=== PATIENT | male | born 1965 | race Hispanic/Latino ===

== ENCOUNTER → 2019-09-13 17:09 | Outpatient (CLI) | payer OTHER, SELFPAY ==
--- NOTE | ~2019-09-13 | XR_ITS ---
XR chest 2V DATE: 09/13/2019 17:42 INDICATION: Cough TECHNIQUE: 2 views COMPARISON: 07/25/2016 two-view chest FINDINGS: Normal heart size. No hilar or mediastinal enlargement. No pulmonary infiltrate or consolid ation, pleural effusion or pulmonary vascular congestion or pneumothorax. Surgical clips, right upper quadrant, likely due to cholecystectomy. IMPRESSION: No active cardiopulmonary disease Reviewed, dictated and finalized at location B.
== END ==
PROVIDERS: PCP Family Medicine; Visit Provider Nurse Practitioner Family
DX: R05 Cough (principal)
CPT/HCPCS: 71046

== ENCOUNTER 2019-10-25 10:22 | Outpatient (NON) | payer OTHER, SELFPAY ==
[2019-10-26 14:10] LABS: SARS-CoV-2 RNA PCR Negative
== END 2019-10-25 10:23 ==
PROVIDERS: PCP Family Medicine; Visit Provider Family Medicine
DX: R04.2 Hemoptysis (principal); R06.89 Other abnormalities of breathing; R50.9 Fever, unspecified; R53.83 Other fatigue; Z20.828 Contact with and (suspected) exposure to other viral communicable diseases
CPT/HCPCS: 87635; U0003

== ENCOUNTER 2019-10-25 10:54 | Outpatient (CLI) | payer OTHER, SELFPAY ==
--- NOTE | ~2019-10-25 | XR_ITS ---
XR chest 2V DATE: 10/25/2019 11:10 INDICATION: Cough, shortness of breath TECHNIQUE: PA and lateral views COMPARISON: 09/23/2019 2 view chest FINDINGS: There is new patchy consolidation with air bronchograms in the right lower lung zone since 09/13/2019. The lungs otherwise appear clear of infiltrate or consolidation. There is mild right pleural effusion. No pneumothorax. Normal heart size. No hilar or mediastinal enlargement is evident. Surgical clips, right upper quadrant, consistent with cholecystectomy. IMPRESSION: Patchy consolidating infiltrate right lower lung, with mild right pleural effusion Reviewed, dictated and finalized at location A. IMPRESSION: Patchy consolidating infiltrate right lower lung, with mild right p leural effusion
== END 2019-10-25 10:55 | disposition home or self-care (01) ==
PROVIDERS: PCP Family Medicine; Visit Provider Family Medicine
DX: R05 Cough (principal); J90 Pleural effusion, not elsewhere classified; R91.8 Other nonspecific abnormal finding of lung field
CPT/HCPCS: 71046

== ENCOUNTER 2019-10-26 20:28 | Inpatient (IN) | payer OTHER, SELFPAY ==
--- NOTE | ~2019-10-26 | XR_ITS ---
EXAMINATION: XR chest 2V DATE: 10/26/2019 21:12 INDICATION: Chest pain and cough TECHNIQUE: PA and lateral views of the chest are obtained. COMPARISON: 10/25/2019 FINDINGS: Right basilar airspace opacities have increased. There are developing left basilar airspace opacities. The cardiomediastinal silhouette is stable. There is no pleural effusion or pneumothorax. Cholecystectomy clips are noted in the right upper quadrant. IMPRESSION: 1. Bibasilar airspace opacities, worsening on the right and developing on the left, consistent with p neumonia versus atelectasis. Reviewed, dictated and finalized at location A. IMPRESSION: 1. Bibasilar airspace opacities, worsening on the right and developing on the l eft, consistent with pneumonia versus atelectasis.
--- NOTE | ~2019-10-26 | XR_ITS ---
EXAMINATION: XR chest 2V DATE: 10/29/2019 07:21 INDICATION: Follow-up pneumonia TECHNIQUE: PA and lateral views of the chest were obtained. COMPARISON: Chest radiograph dated 10/26/2019 FINDINGS: Decrease in the prior airspace opacities in the right lower lobe. Residual small right pleural effusi on. Left lung remains clear. No pneumothorax or left-sided pleural effusion. The cardiomediastinal si lhouette is normal. Cholecystectomy clips in right upper quadrant. Mild thoracolumbar spondylosis. IMPRESSION: 1. Decreasing left lower lobe opacities consistent with improving pneumonia. 2. Small left pleural effusion. Reviewed, dictated and finalized at location A.
[2019-10-26 20:30] VITALS: BP 146/88; PULSE 107; RESP 26; TEMP 37.1; O2SAT 97
--- NOTE | 2019-10-26 20:34 | ECG_ITS ---
Measurements Intervals [place] Rate: 100 P: -3 NC: 132 QRS: -18 QRSD: 102 T: -5 QT: 338 QTc: 436 Interpretive Statements SINUS TACHYCARDIA RSR' IN V1 OR V2, CONSIDER RIGHT VENTRICULAR HYPERTROPHY OR RIGHT VCD VOLTAGE CRITERIA FOR LVH BORDERLINE T WAVE ABNORMALITY- INFERIOR LEADS BORDERLINE ECG Electronically Signed On 10-27-2019 7:02:03 CDT by Mukesh Elder D.O.
[2019-10-26 20:47] VITALS: O2SAT 100
[2019-10-26 20:56] LABS: Basophils Absolute Auto 0.1 K/mm3 (0.0-0.1); Basophils Percent Auto 0.6 % (0.2-1.2); Eosinophils Absolute Auto 0.2 K/mm3 (0-0.3); Eosinophils Percent Auto 1.4 % (0-4.4); Hematocrit 44.6 % (42.0-52.0); Hemoglobin 14.8 g/dL (14.0-18.0); Immature Granulocyte Absolute 0.16 K/mm3 (0.00-0.031); Immature Granulocyte Percent A 1.2 % (0-0.5); Lymphocytes Absolute Auto 1.52 K/mm3 (0.9-3.2); Lymphocytes Percent Auto 11.5 % (18.3-44.2); Mean Corpuscular HGB Conc 33.2 g/dl (32-36); Mean Corpuscular Hemoglobin 28.4 pg (26-34); Mean Corpuscular Volume 85.6 fl (80-100); Mean Platelet Volume 11.2 fl (7.4-10.4); Monocytes Absolute Auto 0.6 K/mm3 (0.1-0.6); Monocytes Percent Auto 4.6 % (2.6-8.5); Neutrophils Absolute Auto 10.7 K/mm3 (1.3-6.7); Neutrophils Percent Auto 80.7 % (45.5-73.1); Platelet Count Result 144 k/mm3 (150-375); Red Blood Count 5.21 M/mm3 (4.6-6.20); Red Cell Distribution Width 13.7 % (11.5-14.5); White Blood Count 13.2 K/mm3 (4.5-10.0)
[2019-10-26 21:14] LABS: Blood Urea Nitrogen 18 mg/dL (9-20); Calcium 8.9 mg/dL (8.4-10.2); Carbon Dioxide 19 mmol/L (22-30); Chloride 103 mmol/L (98-107); Estimated CRCL calculation 89 ml/min; Estimated Glomerular Filt Rate > 60; Glucose 141 mg/dL (75-110); Sodium 130 mmol/L (137-145)
[2019-10-26 22:01] VITALS: BP 154/104; PULSE 102; RESP 32; O2SAT 95
--- NOTE | 2019-10-26 22:19 | ED.GENADULT ---
HPI - General Adult General Chief complaint: Shortness of Breath/Dyspnea Stated complaint: PNA DX YESTERDAY/BACK AND CHEST PAIN Time Seen by Provider: 10/26/19 21:52 History of Present Illness HPI narrative: Patient is a 54 y/o male complaining of intermittent right sided chest pain starting today. He state the pain is sharp and radiates to his back. He rates his pain as 10/10. He has some cough, SOB and fever. He states that he has been having cough for over a month, received multiple course of antibiotics. He developed fever upto 102 3 days ago. He has no fever today, however. He was seen here yesterday, diagnosed with pneumonia and prescribed Levaquin. He return today because of right sided chest pain. Related Data Home Medications Medication Instructions Recorded Confirmed cetirizine mg DAILY 10/26/19 cholecalciferol (vitamin D3) DAILY 10/26/19 [Vitamin D3] diphenhydramine HCl [Benadryl] 25 mg PO HS 10/26/19 levofloxacin 10/26/19 pantoprazole PO DAILY 10/26/19 Allergies Allergy/AdvReac Type Severity Reaction Status Date / Time No Known Allergies Allergy Verified 10/26/19 21:13 Review of Systems Constitutional: Constitutional: Denies chills, Denies fever(s), Denies headache(s) and Denies weakness Eyes: Eyes: Denies blurry vision ENT: Denies headache(s) and Denies neck pain Cardiovascular: Cardiovascular: Reports chest pain and Denies dyspnea Respiratory: Respiratory: Reports cough and Reports dyspnea Gastrointestinal: Gastrointestinal: Denies abdominal pain, Denies diarrhea, Denies nausea and Denies vomiting Genitourinary: Genitourinary: Denies hematuria and Denies dysuria Musculoskeletal: Musculoskeletal: Denies back pain and Denies neck pain Neurologic: Denies headache(s) and Denies weakness ON LICENSE OF [facility] Social History Social History Smoking status: Never smoker Second hand tobacco smoke exposure: No Alcohol intake: never Gender identity (if verbalized by the patient): Male Exam Const: General: no acute distress and well developed Orientation/consciousness: oriented to person, oriented to place, oriented to time and patient oriented x3 HENMT: Head: normocephalic Ears: external ears normal General nose exam: Normal external nose present Eyes: General: appearance normal, both eyes and all related structures Conjunctivae: conjunctivae normal Neck: Neck: normal visual inspection and full ROM Chest: Chest palpation & inspection: normal inspection of the chest and no tenderness Resp: Effort & Inspection: tachypneic Auscultation: clear to auscultation bilaterally Cardio: Rate: tachycardic Rhythm: regular rhythm GI: GI Palp: No abdominal tenderness and Yes Soft to palpation Skin: General skin exam: normal color and turgor normal Neuro: General: oriented to person, oriented to place, oriented to time and patient oriented x3 Cognition (Neuro): normal cognition Extrem: General: normal to inspection, full ROM and no pedal edema Psych: Appearance: grossly normal Mental Status: mental status grossly normal Affect: normal affect Course Consultations Consultation #1: Discussed with Dr. Wiggins, who agrees to admit. Date: 10/26/19 Time: 22:30 Vital Signs Vital signs: Vital Signs Temperature 37.1 C 10/26/19 20:30 Pulse Rate 107 H 10/26/19 20:30 Respiratory Rate 26 H 10/26/19 20:30 Blood Pressure 146/88 H 10/26/19 20:30 Pulse Oximetry 97 10/26/19 20:30 Temperature 37.1 C 10/26/19 20:30 Pulse Rate 102 H 10/26/19 22:01 Respiratory Rate 32 H 10/26/19 22:01 Blood Pressure 154/104 H 10/26/19 22:01 Pulse Oximetry 95 10/26/19 22:01 Medical Decision Making Vital Signs Vital Signs: Vital Signs Temperature 37.1 C 10/26/19 20:30 Pulse Rate 107 H 10/26/19 20:30 Respiratory Rate 26 H 10/26/19 20:30 Blood Pressure 146/88 H 10/26/19 20:30 Pulse Oximetry 97 10/26/19 20:30 Temperature
[2019-10-26 23:03] LABS: Lactate Dehydrogenase 307 U/L (313-618)
[2019-10-26 23:04] LABS: Troponin I < 0.012 ng/mL (0.000-0.034)
[2019-10-26 23:08] LABS: CRP 18.2 mg/dL (<1.0)
[2019-10-26 23:34] VITALS: BMI 33.7
[2019-10-26 23:35] VITALS: PULSE 92; O2SAT 98
[2019-10-26 23:40] VITALS: BP 151/88; PULSE 94; RESP 18; TEMP 36.9; O2SAT 96
--- NOTE | 2019-10-26 23:40 | ADMGEN ---
This patient, Fermín White, was admitted to [facility] Surg Room 330-01. Patient/family oriented to hospital policies and general routines including ID bracelet, bed and alarms, visiting hours, pain management, procedures, bathroom and other care routines, personal items, smoking policy, room service/diet, and visiting hours. Valuables list has been completed. Information on how to activate the Rapid Response Team has been discussed. Patient/Family are encouraged to report perceived risks to care and to ask questions if they do not understand what they are told or what they should do.
[2019-10-26 23:44] VITALS: BP 152/100; PULSE 104; RESP 32; O2SAT 97
[2019-10-27] VITALS (13 sets, daily range): BP systolic 141–175; BP diastolic 80–96; PULSE 80–115; RESP 18–24; TEMP 36.7–37.3; O2SAT 94–97; BMI 19.5
[2019-10-27 02:26] LABS: Troponin I < 0.012 ng/mL (0.000-0.034)
[2019-10-27] MEDS: hydrALAZINE HCL 20 MG/ML VIAL 10 MG IV PUSH ×2 (03:52→10:13)
--- NOTE | 2019-10-27 05:24 | PM.IMHP ---
H&P: HPI History of Present Illness Chief complaint: Shortness of breath and chest pain Narrative: Fermín White is a 54 year old male with a past medical history of GERD, and seasonal allergies who presented to the ER with shortness of breath and chest pain after being diagnosed with pneumonia the day before. The patient reports that he had been having intermittent upper respiratory tract symptoms for the last 3 months. He reports that in still couple of days ago his cough had been dry/nonproductive. He went to see his primary care physician on the 12 of September and had a chest x-ray performed and was started on cefdinir, and albuterol inhaler and Tessalon Perles. His chest x-ray at that time was unremarkable. He went back to his primary care physician on 10/15/2019 time that his cough was more reactive he was given a prescription for prednisone. After course of prednisone the patient reports that his cough had resolved any felt much better. Until Friday the he began having increased cough, chills, fever and shortness of breath. His cough also over the last couple of days has been productive of green sputum and scant hemoptysis. He reports that his last fever was 100.2 3 days ago. He has been taking NSAIDs to keep his temperature down. He was seen in the clinic on the and was given a prescription for Levaquin. He had a chest x-ray performed at that time which demonstrated patchy consolidation at the inferior right lower lobe and mild pleural effusion. He was tested for COVID-19 and was negative. He decided to come back to the ER because on the he started having right pleuritic chest pain. The pain was moderate to severe in intensity. His pain is improved now with [place]. The pain radiated around to his back. When he arrived to the ER he was mildly tachycardic with heart rate in the low 100s. Respiratory rate was between 26 and 32. He has not been hypoxic since presentation. He denies any recent ill contacts. 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 He denies any history of COPD. However he did have pulmonary function testing a couple of years ago that was negative for COPD with did demonstrate some decreased diffusion capacity (were that simply sweat it sounds like per the patient's report). Had a CT in 2009 that was suggestive of chronic bronchiolitis or hypersensitivity pneumonitis. Review of Systems Review of Systems: Narrative: 12 systems were reviewed with pertinent positives and negatives per HPI. Except as documented in the HPI, all other systems were reviewed and are negative. [facility] Past Medical History Medical History (Updated 10/27/19 @ 08:00 by Glenys Wiggins DO) Allergic rhinitis GERD (gastroesophageal reflux disease) Hepatic steatosis Kidney stones Migraine Obstructive sleep apnea on CPAP Surgical History Surgical History (Updated 10/27/19 @ 03:15 by Glenys Wiggins DO) History of appendectomy History of laparoscopic cholecystectomy Family History Family History (Updated 10/27/19 @ 07:43 by Glenys Wiggins DO) Father , At age 50 Acute myocardial infarction Mother In good health Social History Social History (Updated 10/27/19 @ 07:45 by Glenys Wiggins DO) Social History: Primary care physician: Dr. Rock [place] Smoking status: Never smoker Second hand tobacco smoke exposure: No Alcohol intake: never Substance use: never Living arrangements: with family Additional living arrangements comments: The patient lives with his of 39 years and her youngest daughter who is 20 years old. He has 4 daughters in total. He has 5 grandchildren. 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 Gender identity (if verbalized by the patient): Male Spiritual care concerns: No Agree to blood products: Yes Meds Home Medications and Allergies Home Medications
[2019-10-27 06:13] LABS: Basophils Absolute Auto 0.1 K/mm3 (0.0-0.1); Basophils Percent Auto 0.5 % (0.2-1.2); Eosinophils Absolute Auto 0.2 K/mm3 (0-0.3); Eosinophils Percent Auto 1.9 % (0-4.4); Hematocrit 42.7 % (42.0-52.0); Hemoglobin 14.3 g/dL (14.0-18.0); Immature Granulocyte Absolute 0.14 K/mm3 (0.00-0.031); Immature Granulocyte Percent A 1.1 % (0-0.5); Immature Platelet Fraction Pct 7.2 % (0.9-11.2); Lymphocytes Absolute Auto 1.91 K/mm3 (0.9-3.2); Lymphocytes Percent Auto 15.3 % (18.3-44.2); Mean Corpuscular HGB Conc 33.5 g/dl (32-36); Mean Corpuscular Hemoglobin 28.3 pg (26-34); Mean Corpuscular Volume 84.4 fl (80-100); Monocytes Absolute Auto 0.7 K/mm3 (0.1-0.6); Monocytes Percent Auto 5.7 % (2.6-8.5); Neutrophils Absolute Auto 9.4 K/mm3 (1.3-6.7); Neutrophils Percent Auto 75.5 % (45.5-73.1); Platelet Count Result 133 k/mm3 (150-375); Red Blood Count 5.06 M/mm3 (4.6-6.20); Red Cell Distribution Width 13.9 % (11.5-14.5); White Blood Count 12.5 K/mm3 (4.5-10.0)
[2019-10-27 06:15] LABS: INR 1.1; Prothrombin Time 13.7 Seconds (11.1-14.7)
[2019-10-27 06:16] LABS: Partial Thromboplastin Time 28.9 SECONDS (22.3-36.8)
[2019-10-27 06:18] LABS: D Dimer 0.36 ug/mL (<0.48)
[2019-10-27 06:25] LABS: Alanine Aminotransferase 25 U/L (4-50); Albumin Level 3.5 g/dL (3.5-5.1); Alkaline Phosphatase 67 U/L (38-126); Aspartate Amino Transferase 18 U/L (17-59); Bilirubin,Total 0.4 mg/dL (0.2-1.3); Blood Urea Nitrogen 18 mg/dL (9-20); Calcium 8.7 mg/dL (8.4-10.2); Carbon Dioxide 20 mmol/L (22-30); Chloride 103 mmol/L (98-107); Estimated CRCL calculation 70 ml/min; Estimated Glomerular Filt Rate > 60; Glucose 125 mg/dL (75-110); Potassium 3.7 mmol/L (3.4-5.0); Sodium 132 mmol/L (137-145)
[2019-10-27 06:40] LABS: Troponin I < 0.012 ng/mL (0.000-0.034)
[2019-10-27 06:44] LABS: Influenza Control Positive
[2019-10-27] MEDS: FLUTICASONE PROPIONATE 0.05% NA SPR 16 GM BTL (*BKC) 2 SPRAY NASAL (08:03)
[2019-10-27] MEDS: CHOLECALCIFEROL 1,000 UNIT TABLET 2000 UNITS PO ×2 (08:03→08:04)
[2019-10-27] MEDS: LORATADINE 10 MG TABLET PO (08:04)
[2019-10-27] MEDS: ENOXAPARIN 40 MG/0.4 ML SYRINGE SUB-Q (08:04)
[2019-10-27] MEDS: PANTOPRAZOLE 40 MG TABLET PO (08:04)
[2019-10-27] MEDS: ALBUTEROL SULFATE (*SP) AEROSOL 1 PUFF 6 PUFF INHALATION ×4 (08:48→20:35)
[2019-10-27] MEDS: SUMAtriptan SUCCINATE 25 MG TABLET 100 MG PO (11:03)
[2019-10-27 15:10] LABS: SARS-CoV-2 RNA PCR Negative
--- NOTE | 2019-10-27 15:44 | PM.IMPN ---
Progress Note: A&P Assessment and Plan (1) Pneumonia: Qualifiers: Laterality: bilateral Lung location: unspecified part of lung Pneumonia type: due to unspecified organism Qualified Code(s): J18.9 - Pneumonia, unspecified organism Code(s): J18.9 - Pneumonia, unspecified organism Status: Acute Assessment and Plan: Antibiotic therapy was not initiated in the ER. However, the patient had been taking Levaquin at home. placed patient on Rocephin and azithromycin. Blood cultures pending and COVID-19 returned negative for 2nd time in 48 hours (2) Sepsis: Qualifiers: Sepsis acute organ dysfunction status: unspecified Sepsis type: sepsis due to unspecified organism Qualified Code(s): A41.9 - Sepsis, unspecified organism Code(s): A41.9 - Sepsis, unspecified organism Status: Acute Assessment and Plan: Patient met sepsis criteria with leukocytosis, mild tachycardia and tachypnea. Continue monitor (3) Elevated blood sugar: Code(s): R73.9 - Hyperglycemia, unspecified Status: Acute Assessment and Plan: Mild elevation. Check an A1c probably secondary to stress (4) Thrombocytopenia: Code(s): D69.6 - Thrombocytopenia, unspecified Status: Acute Assessment and Plan: Mild thrombocytopenia and will follow serially. Probably secondary to sepsis Subjective Date/time seen: 10/27/19 15:44 Interval history: Date of visit 10/26. 54-year-old male admitted with lower lobe primary right-sided pneumonia with pleuritic pain and shortness of breath. Failed outpatient treatment with levofloxacin and now admitted on ceftriaxone and azithromycin. COVID was negative on the and repeated 10/25 Exam Narrative: Exam Narrative: PHYSICAL EXAM: Blood pressure 164/86 pulse 110 respiration 24 per minute saturating 96% on room air afebrile General: No acute distress, well-developed well-nourished, appears stated age HEENT: no icterus, mildly injected sclera Neck: No JVD, supple Respiratory: Decreased breath sounds bilaterally, mild accessory muscle use, mild tachypnea and faint crackle right posterior base Cardiovascular: Normal S1-S2, no murmurs, 2+ bilateral radial and pedal pulses Gastrointestinal: Soft, nontender, nondistended, positive bowel Skin: Non jaundice, no pallor Extremities: No edema Neurological: Alert and oriented, no focal deficits Psychiatric: Appropriate mood and affect, pleasant and cooperative Objective Data Vital Signs Vital Signs: Vital Signs - 24 hr 10/26/19 20:30 10/26/19 20:47 10/26/19 22:01 Temperature 37.1 C Pulse Rate 107 H 102 H Respiratory Rate 26 H 32 H Blood Pressure 146/88 H 154/104 H Pulse Oximetry 97 100 95 10/26/19 23:35 10/26/19 23:40 10/26/19 23:44 Temperature 36.9 C Pulse Rate 92 94 104 H Respiratory Rate 18 32 H Blood Pressure 151/88 H 152/100 H Pulse Oximetry 98 96 97 10/27/19 01:28 10/27/19 02:00 10/27/19 04:00 Temperature 37.1 C Pulse Rate 80 92 Respiratory Rate 18 Blood Pressure 175/96 H Pulse Oximetry 97 94 10/27/19 06:00 10/27/19 08:00 10/27/19 11:00 Temperature 36.9 C 36.9 C Pulse Rate 95 92 115 H Respiratory Rate 18 24 H Blood Pressure 141/83 H 165/89 H Pulse Oximetry 96 96 10/27/19 12:00 10/27/19 14:00 Temperature 36.8 C Pulse Rate 110 H 111 H Respiratory Rate 20 Blood Pressure 153/89 H Pulse Oximetry 95 Intake/Output Intake/Output: Intake & Output 10/24/19 10/25/19 10/26/19 10/27/19 23:59 23:59 23:59 23:59 Intake Total 790 Output Total 100 Balance 690 Meds/Results Medications: Active Medications Generic Name Dose Route Start Last Admin Trade Name Freq PRN Reason Stop Dose Admin Acetaminophen 650 mg 10/27/19 03:13 Tylenol Tablet PO Q4H PRN Mild Pain (1-3) or Fever Hydrocodone Bitart/Acetaminophen 1 tab 10/27/19 03:13 10/27/19 11:09 [place] 5-325 Mg PO 1 tab Q6H
[2019-10-27] MEDS: IBUPROFEN 400 MG TABLET PO (18:55)
[2019-10-28] VITALS (13 sets, daily range): BP systolic 150–174; BP diastolic 82–93; PULSE 89–114; RESP 16–20; TEMP 36.6–38.3; O2SAT 92–94
[2019-10-28] MEDS: IBUPROFEN 400 MG TABLET PO (01:59)
[2019-10-28] MEDS: hydrALAZINE HCL 20 MG/ML VIAL 10 MG IV PUSH ×2 (01:59→14:58)
[2019-10-28 06:27] LABS: Basophils Absolute Auto 0.1 K/mm3 (0.0-0.1); Eosinophils Absolute Auto 0.2 K/mm3 (0-0.3); Eosinophils Percent Auto 1.9 % (0-4.4); Hematocrit 45.4 % (42.0-52.0); Immature Granulocyte Absolute 0.53 K/mm3 (0.00-0.031); Immature Granulocyte Percent A 4.3 % (0-0.5); Lymphocytes Absolute Auto 1.88 K/mm3 (0.9-3.2); Lymphocytes Percent Auto 15.2 % (18.3-44.2); Mean Corpuscular Hemoglobin 28.3 pg (26-34); Mean Corpuscular Volume 85.7 fl (80-100); Mean Platelet Volume 10.8 fl (7.4-10.4); Monocytes Absolute Auto 1.8 K/mm3 (0.1-0.6); Monocytes Percent Auto 14.4 % (2.6-8.5); Neutrophils Absolute Auto 7.8 K/mm3 (1.3-6.7); Neutrophils Percent Auto 63.2 % (45.5-73.1); Platelet Count Result 158 k/mm3 (150-375); White Blood Count 12.4 K/mm3 (4.5-10.0)
[2019-10-28 06:35] LABS: Hemoglobin A1C 5.8 % (<5.7)
[2019-10-28 06:41] LABS: Blood Urea Nitrogen 15 mg/dL (9-20); Carbon Dioxide 23 mmol/L (22-30); Chloride 100 mmol/L (98-107); Estimated CRCL calculation 70 ml/min; Estimated Glomerular Filt Rate > 60; Glucose 99 mg/dL (75-110); Potassium 3.5 mmol/L (3.4-5.0); Sodium 132 mmol/L (137-145)
[2019-10-28] MEDS: LORATADINE 10 MG TABLET PO (07:50)
[2019-10-28] MEDS: SUMAtriptan SUCCINATE 25 MG TABLET 100 MG PO ×2 (07:50→17:10)
[2019-10-28] MEDS: FLUTICASONE PROPIONATE 0.05% NA SPR 16 GM BTL (*BKC) 2 SPRAY NASAL (07:50)
[2019-10-28] MEDS: ENOXAPARIN 40 MG/0.4 ML SYRINGE SUB-Q (07:50)
[2019-10-28] MEDS: PANTOPRAZOLE 40 MG TABLET PO (07:51)
[2019-10-28] MEDS: ALBUTEROL SULFATE (*SP) AEROSOL 1 PUFF 6 PUFF INHALATION ×4 (08:39→20:22)
--- NOTE | 2019-10-28 15:22 | PM.IMPN ---
Progress Note: A&P Assessment and Plan (1) Pneumonia: Qualifiers: Laterality: bilateral Lung location: unspecified part of lung Pneumonia type: due to unspecified organism Qualified Code(s): J18.9 - Pneumonia, unspecified organism Code(s): J18.9 - Pneumonia, unspecified organism Status: Acute Assessment and Plan: Antibiotic therapy was not initiated in the ER. However, the patient had been taking Levaquin at home. placed patient on Rocephin and azithromycin. Blood cultures negative so far and COVID-19 returned negative for 2nd time in 48 hours urine antigens for legionella and strep still pending (2) Sepsis: Qualifiers: Sepsis acute organ dysfunction status: unspecified Sepsis type: sepsis due to unspecified organism Qualified Code(s): A41.9 - Sepsis, unspecified organism Code(s): A41.9 - Sepsis, unspecified organism Status: Acute Assessment and Plan: Patient met sepsis criteria with leukocytosis, mild tachycardia and tachypnea. Wbc 12.4 and less tachy. bp toward high side (3) Elevated blood sugar: Code(s): R73.9 - Hyperglycemia, unspecified Status: Acute Assessment and Plan: Mild elevation. Hemoglobin A1c 5.8 and fasting blood sugar 99 today. (4) Thrombocytopenia: Code(s): D69.6 - Thrombocytopenia, unspecified Status: Acute Assessment and Plan: Mild thrombocytopenia and will follow serially. Probably secondary to sepsis. Platelet has rebounded to 158 today continue to monitor and continue Lovenox Subjective Date/time seen: 10/28/19 15:22 Interval history: Date of visit 10/27. 54-year-old male admitted with lower lobe primary right-sided pneumonia with pleuritic pain and shortness of breath. Failed outpatient treatment with levofloxacin and now admitted on ceftriaxone and azithromycin. COVID was negative on the and negative again when repeated 10/25. Less chest pain today and better appetite Exam Narrative: Exam Narrative: PHYSICAL EXAM: Blood pressure 150/82 pulse 94 respiration 16 per minute saturating 94% on room air afebrile General: No acute distress, well-developed well-nourished, appears stated age HEENT: no icterus, mildly injected sclera Neck: No JVD, supple Respiratory: Decreased breath sounds bilaterally,and marked crackles right posterior base Cardiovascular: Normal S1-S2, no murmurs, 2+ bilateral radial and pedal pulses Gastrointestinal: Soft, nontender, nondistended, positive bowel Skin: Non jaundice, no pallor Extremities: No edema Neurological: Alert and oriented, no focal deficits Psychiatric: Appropriate mood and affect, pleasant and cooperative Objective Data Vital Signs Vital Signs: Vital Signs - 24 hr 10/27/19 16:00 10/27/19 18:35 10/27/19 20:00 Temperature 37.3 C Pulse Rate 110 H 113 H 102 H Respiratory Rate 22 H Blood Pressure 144/80 H Pulse Oximetry 95 10/27/19 21:46 10/28/19 00:00 10/28/19 02:00 Temperature 36.7 C 36.8 C Pulse Rate 106 H 89 94 Respiratory Rate 20 20 Blood Pressure 159/90 H 166/93 H Pulse Oximetry 94 93 10/28/19 04:00 10/28/19 06:00 10/28/19 08:00 Temperature 36.6 C Pulse Rate 95 94 99 Respiratory Rate 20 Blood Pressure 150/85 H Pulse Oximetry 94 10/28/19 10:00 10/28/19 12:00 10/28/19 14:00 Temperature 36.6 C 37.3 C Pulse Rate 104 H 94 105 H Respiratory Rate 16 20 Blood Pressure 152/82 H 174/87 H Pulse Oximetry 92 92 Intake/Output Intake/Output: Intake & Output 10/25/19 10/26/19 10/27/19 10/28/19 23:59 23:59 23:59 23:59 Intake Total 1290 1730 Output Total 600 650 Balance 690 1080 Meds/Results Medications: Active Medications Generic Name Dose Route Start Last Admin Trade Name Freq PRN Reason Stop Dose Admin Acetaminophen 650 mg 10/27/19 03:13 Tylenol Tablet PO Q4H PRN Mild Pain (1-3) or Fever Hydrocodone Bitart/Acetaminophen 1 tab 10/27/19 1
[2019-10-28] MEDS: ACETAMINOPHEN 325 MG TABLET 650 MG PO (21:17)
[2019-10-29] VITALS (12 sets, daily range): BP systolic 142–155; BP diastolic 76–87; PULSE 85–114; RESP 18–20; TEMP 36.1–37.7; O2SAT 95–97
[2019-10-29] MEDS: ACETAMINOPHEN 325 MG TABLET 650 MG PO ×2 (02:10→06:22)
[2019-10-29 05:49] LABS: Blood Urea Nitrogen 13 mg/dL (9-20); Calcium 8.7 mg/dL (8.4-10.2); Carbon Dioxide 25 mmol/L (22-30); Chloride 100 mmol/L (98-107); Estimated CRCL calculation 70 ml/min; Estimated Glomerular Filt Rate > 60; Glucose 99 mg/dL (75-110); Potassium 3.9 mmol/L (3.4-5.0); Sodium 132 mmol/L (137-145)
[2019-10-29 05:55] LABS: Basophils Percent Auto 0.3 % (0.2-1.2); Eosinophils Absolute Auto 0.2 K/mm3 (0-0.3); Eosinophils Percent Auto 1.8 % (0-4.4); Hematocrit 45.8 % (42.0-52.0); Hemoglobin 15.2 g/dL (14.0-18.0); Immature Granulocyte Absolute 0.81 K/mm3 (0.00-0.031); Immature Granulocyte Percent A 6.6 % (0-0.5); Lymphocytes Absolute Auto 2.23 K/mm3 (0.9-3.2); Lymphocytes Percent Auto 18.3 % (18.3-44.2); Mean Corpuscular HGB Conc 33.2 g/dl (32-36); Mean Corpuscular Volume 84.5 fl (80-100); Mean Platelet Volume 10.3 fl (7.4-10.4); Monocytes Absolute Auto 2.1 K/mm3 (0.1-0.6); Monocytes Percent Auto 16.8 % (2.6-8.5); Neutrophils Absolute Auto 6.9 K/mm3 (1.3-6.7); Neutrophils Percent Auto 56.2 % (45.5-73.1); Platelet Count Result 174 k/mm3 (150-375); Red Blood Count 5.42 M/mm3 (4.6-6.20); Red Cell Distribution Width 13.8 % (11.5-14.5); White Blood Count 12.2 K/mm3 (4.5-10.0)
[2019-10-29] MEDS: ALBUTEROL SULFATE (*SP) AEROSOL 1 PUFF 6 PUFF INHALATION ×4 (07:48→19:28)
[2019-10-29] MEDS: FLUTICASONE PROPIONATE 0.05% NA SPR 16 GM BTL (*BKC) 2 SPRAY NASAL (09:27)
[2019-10-29] MEDS: IBUPROFEN 400 MG TABLET PO (09:27)
[2019-10-29] MEDS: PANTOPRAZOLE 40 MG TABLET PO (09:28)
[2019-10-29] MEDS: LORATADINE 10 MG TABLET PO (09:28)
[2019-10-29] MEDS: CHOLECALCIFEROL 1,000 UNIT TABLET 2000 UNITS PO (09:28)
[2019-10-29] MEDS: ENOXAPARIN 40 MG/0.4 ML SYRINGE SUB-Q (09:28)
[2019-10-29] MEDS: SUMAtriptan SUCCINATE 25 MG TABLET 100 MG PO (12:32)
--- NOTE | 2019-10-29 15:18 | PM.IMPN ---
Progress Note: A&P Assessment and Plan (1) Pneumonia: Qualifiers: Laterality: bilateral Lung location: unspecified part of lung Pneumonia type: due to unspecified organism Qualified Code(s): J18.9 - Pneumonia, unspecified organism Code(s): J18.9 - Pneumonia, unspecified organism Status: Acute Assessment and Plan: Antibiotic therapy was not initiated in the ER. However, the patient had been taking Levaquin at home. placed patient on Rocephin and azithromycin. D #3 Blood cultures negative so far and COVID-19 returned negative for 2nd time in 48 hours urine antigens for legionella and strep still pending (2) Sepsis: Qualifiers: Sepsis acute organ dysfunction status: unspecified Sepsis type: sepsis due to unspecified organism Qualified Code(s): A41.9 - Sepsis, unspecified organism Code(s): A41.9 - Sepsis, unspecified organism Status: Acute Assessment and Plan: Patient met sepsis criteria with leukocytosis, mild tachycardia and tachypnea. Wbc 12.2 and less tachy. bp toward high side (3) Elevated blood sugar: Code(s): R73.9 - Hyperglycemia, unspecified Status: Acute Assessment and Plan: Mild elevation. Hemoglobin A1c 5.8 and fasting blood sugar 99 again today. (4) Thrombocytopenia: Code(s): D69.6 - Thrombocytopenia, unspecified Status: Acute Assessment and Plan: Mild thrombocytopenia . Probably secondary to sepsis. Platelet has rebounded to 174 today and continue Lovenox Subjective Date/time seen: 10/29/19 15:18 Interval history: Date of visit 10/28. 54-year-old male admitted with bilateral lower lobe primary right-sided pneumonia with pleuritic pain and shortness of breath. Failed outpatient treatment with levofloxacin and now admitted on ceftriaxone and azithromycin. COVID was negative on the and negative again when repeated 10/25. Less chest pain each day and better appetite Exam Narrative: Exam Narrative: PHYSICAL EXAM: Blood pressure 144/86 pulse 86 respiration 18 per minute saturating 97% on room air afebrile General: No acute distress HEENT: no icterus,[place] Neck: No JVD, supple Respiratory: Decreased breath sounds bilaterally,and bibasilar crackles R>L Cardiovascular: Normal S1-S2, no murmurs, 2+ bilateral radial and pedal pulses Gastrointestinal: Soft, nontender, nondistended, positive bowel Skin: Non jaundice, no pallor Extremities: No edema Neurological: Alert and oriented, no focal deficits Psychiatric: Appropriate mood and affect, pleasant and cooperative Objective Data Vital Signs Vital Signs: Vital Signs - 24 hr 10/28/19 16:00 10/28/19 20:00 10/28/19 21:00 Temperature 38.3 C H Pulse Rate 109 H 114 H 113 H Respiratory Rate 20 Blood Pressure 152/90 H Pulse Oximetry 93 10/28/19 21:17 10/28/19 22:37 10/29/19 00:00 Temperature 38.3 C H 36.9 C Pulse Rate 85 Respiratory Rate Blood Pressure Pulse Oximetry 10/29/19 01:40 10/29/19 04:00 10/29/19 06:00 Temperature 37.3 C 36.9 C Pulse Rate 93 85 91 Respiratory Rate 18 18 Blood Pressure 155/85 H 144/87 H Pulse Oximetry 95 97 10/29/19 08:00 10/29/19 10:00 10/29/19 12:00 Temperature 36.9 C Pulse Rate 91 98 86 Respiratory Rate 20 Blood Pressure 151/82 H Pulse Oximetry 95 Intake/Output Intake/Output: Intake & Output 10/26/19 10/27/19 10/28/19 10/29/19 23:59 23:59 23:59 23:59 Intake Total 1290 2280 840 Output Total 285 023 3058 Balance 690 1630 -160 Meds/Results Medications: Active Medications Generic Name Dose Route Start Last Admin Trade Name Freq PRN Reason Stop Dose Admin Acetaminophen 650 mg 10/27/19 03:13 10/29/19 06:22 Tylenol Tablet PO 650 mg Q4H PRN Administration Mild Pain (1-3) or Fever Hydrocodone Bitart/Acetaminophen 1 tab 10/27/19 18:28 10/28/19 14:58 [place] 5-325 Mg PO 1 tab Q6H PRN Administration Pain R
[2019-10-30] VITALS: PULSE 93
[2019-10-30 02:00] VITALS: BP 142/88; PULSE 103; RESP 16; TEMP 37; O2SAT 94
[2019-10-30] MEDS: SUMAtriptan SUCCINATE 25 MG TABLET 100 MG PO (02:37)
[2019-10-30 04:00] VITALS: PULSE 96
[2019-10-30 06:00] VITALS: BP 149/89; PULSE 98; RESP 18; TEMP 37; O2SAT 94
[2019-10-30 08:00] VITALS: PULSE 93
[2019-10-30] MEDS: ALBUTEROL SULFATE (*SP) AEROSOL 1 PUFF 6 PUFF INHALATION (08:39)
[2019-10-30] MEDS: FLUTICASONE PROPIONATE 0.05% NA SPR 16 GM BTL (*BKC) 2 SPRAY NASAL (08:53)
[2019-10-30] MEDS: ENOXAPARIN 40 MG/0.4 ML SYRINGE SUB-Q (08:53)
[2019-10-30] MEDS: LORATADINE 10 MG TABLET PO (08:54)
[2019-10-30] MEDS: PANTOPRAZOLE 40 MG TABLET PO (08:54)
[2019-10-30] MEDS: CHOLECALCIFEROL 1,000 UNIT TABLET 2000 UNITS PO (08:54)
[2019-10-30] MEDS: ACETAMINOPHEN 325 MG TABLET 650 MG PO (08:55)
--- NOTE | 2019-10-30 18:19 | PM.DS ---
DS: Diagnosis Admitting Diagnosis Admitting Diagnosis: Pneumonia, unspecified organism Discharge Diagnosis (1) Pneumonia: Qualifiers: Laterality: bilateral Lung location: unspecified part of lung Pneumonia type: due to unspecified organism Qualified Code(s): J18.9 - Pneumonia, unspecified organism Code(s): J18.9 - Pneumonia, unspecified organism Status: Acute Assessment and Plan: placed patient on Rocephin and azithromycin. And received total of 4 days treatment here. He will finish 3-4 more days of Levaquin 750 daily at home Blood cultures negative and COVID-19 returned negative for 2nd time in 48 hours urine antigens for legionella and strep were not resulted at discharge (2) Sepsis: Qualifiers: Sepsis acute organ dysfunction status: unspecified Sepsis type: sepsis due to unspecified organism Qualified Code(s): A41.9 - Sepsis, unspecified organism Code(s): A41.9 - Sepsis, unspecified organism Status: Acute Assessment and Plan: Patient met sepsis criteria with leukocytosis, mild tachycardia and tachypnea. Wbc 12.2 and less tachy. bp not low. And as stated above blood cultures negative (3) Elevated blood sugar: Code(s): R73.9 - Hyperglycemia, unspecified Status: Acute Assessment and Plan: Mild elevation. Hemoglobin A1c 5.8 and fasting blood sugar 99 day prior to discharge. (4) Thrombocytopenia: Code(s): D69.6 - Thrombocytopenia, unspecified Status: Acute Assessment and Plan: Mild thrombocytopenia . Probably secondary to sepsis. Platelet has rebounded to 174 date prior to discharge DS: Summary Hospital Course Hospital Course: 54-year-old male admitted with right-sided pleuritic pain , productive cough. He had been diagnosed with pneumonia some 24 hours earlier with COVID negative and was discharged with Levaquin. With pain worsening he returned and was admitted. He received IV ceftriaxone and azithromycin 4 days treatment while here in pleuritic pain subsided with white cell count dropping. Cough is improving and repeat chest x-ray on the showed partial resolution of infiltrate He will finish course of Levaquin 750 daily at home and follow-up with his primary care Dr. 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 Reid Time Spent with Patient Time attestation: Total time spent providing and/or coordinating discharge services: 35 minutes Exam Narrative: Exam Narrative: Condition on discharge Blood pressure 144/86 pulse is 92 saturating 94% on room air Lungs faint bibasilar crackles posterior right greater than left CV regular rate rhythm Abdomen soft nontender Extremities without edema His pleuritic chest pain had almost totally subsided DS: Data Data Completed and Pending Labs on day of discharge: Preliminary micro results at discharge 10/26/19 22:33 Blood Culture - Preliminary Blood 10/26/19 22:14 Blood Culture - Preliminary Blood Discharge Plan Discharge Attending physician on discharge: Ulysses Quinones Discharging Clinician: Ulysses Quinones Patient Disposition: Home, Self-Care Activity: as tolerated Diet: low sodium Discharge Instructions: Return to work after released by Dr Israel Patient Instructions: Antibiotic Form, Acetaminophen (By mouth), Ibuprofen (By mouth), Seasoning Without Salt (DC), Fever in Adults (GEN), Low-Sodium Diet (DC), Pneumonia (DC) Stand Alone Forms: General Discharge Information Follow-up/Referrals: Rock Israel MD [Primary Care Provider] - 2 Weeks Discharge Medications: Continued fluticasone propionate 50 mcg/actuation spray,suspension 2 spray NASAL DAILY Qty: 15.8 RF: 3 albuterol sulfate [ProAir HFA] 90 mcg/actuation HFA aerosol inhaler 1 inhalati
== END 2019-10-30 11:05 | disposition home or self-care (01) | DRG 194 ==
LOC: ANHED 21:52 → ANH3MEDSUR 22:59
PROVIDERS: Emergency Medicine; Admitting Provider Internal Medicine; Emergency Provider Emergency Medicine; PCP Family Medicine; Visit Provider Internal Medicine
DX: J18.9 Pneumonia, unspecified organism (principal); R04.2 Hemoptysis; K21.9 Gastro-esophageal reflux disease without esophagitis; Z20.828 Contact with and (suspected) exposure to other viral communicable diseases; N28.89 Other specified disorders of kidney and ureter; Z87.442 Personal history of urinary calculi; G47.33 Obstructive sleep apnea (adult) (pediatric); Z90.49 Acquired absence of other specified parts of digestive tract; R73.9 Hyperglycemia, unspecified; D69.6 Thrombocytopenia, unspecified
CPT/HCPCS: 36415; 71046; 80048; 80053; 82728; 83036; 83605; 83615; 84484; 85025; 85055; 85380; 85610; 85730; 86140; 87040; 87635; 87804; 93005; 94640; 96365; 96367; 96372; 96375; 96376; 99285; A9270; G0378; J0360; J0456; J0696; J1650; U0003

== ENCOUNTER 2019-12-04 09:50 | Outpatient (CLI) | payer OTHER, SELFPAY ==
--- NOTE | ~2019-12-04 | XR_ITS ---
EXAMINATION: XR chest 2V 12/04/2019 10:06 INDICATION: Pneumonia. Prove symptoms. Dyspnea. PROCEDURE: 2 view chest COMPARISON: Comparison to multiple prior studies sequentially, with oldest reviewed study dated 03/2020. FINDINGS: The lungs are clear. The cardiomediastinal silhouette is within normal limits. There are no pleural effusions. There is no pneumothorax suspected. IMPRESSION: 1: NO ACUTE CARDIOPULMONARY DISEASE. Reviewed, dictated and finalized at location A.
== END 2019-12-04 09:51 | disposition home or self-care (01) ==
PROVIDERS: PCP Family Medicine; Visit Provider Nurse Practitioner Family
DX: J18.9 Pneumonia, unspecified organism (principal)
CPT/HCPCS: 71046

== ENCOUNTER 2020-03-27 11:19 | Outpatient (CLI) | payer OTHER, SELFPAY ==
--- NOTE | ~2020-03-27 | CT_ITS ---
EXAMINATION: CT abdomen pelvis wo con DATE: 03/27/2020 12:10 INDICATION: Left flank pain. TECHNIQUE: Computed tomography (CT) of the abdomen and pelvis was performed without intravenous contr ast. Automated exposure control and iterative reconstruction technique were employed. The dose-length product was 374.45 mGy-cm. COMPARISON: CT abdomen and pelvis 01/13/2017 FINDINGS: The visualized portions of the lung bases demonstrate smooth septal thickening, likely mild pulmonary edema. No pleural effusion. The heart size is normal. There are coronary artery calcificat ions. No pericardial effusion. The liver and spleen are normal. There are changes of cholecystectomy. The pancreas and adrenal glands are normal. There is a 2 mm stone in right kidney. Left kidney is no rmal. There is a 3 mm stone at left ureterovesicular junction. There is diverticulosis of the colon w ithout evidence of diverticulitis. There are no dilated loops of bowel. There are changes of appendec kemal. There are no pathologically enlarged lymph nodes. There is no free intraperitoneal fluid. There is moderate thoracolumbar spondylosis. There is mild chronic anterior wedging of T12 vertebral body. IMPRESSION: 1. 3 mm stone at left ureterovesicular junction. No hydronephrosis. 2. 2 mm nonobstructing right kidney stone. Reviewed, dictated and finalized at location A.
--- NOTE | ~2020-03-27 | XR_ITS ---
XR abdomen/kub 1V 03/27/2020 12:00 INDICATION: Ureteral stone TECHNIQUE: KUB COMPARISON: 01/06/2017 FINDINGS: Bowel gas pattern is normal. There is no evidence of free air, mass, organomegaly, ascites or obstruction. No abnormal calculi are seen. The bones appear intact. There are cholecystectomy c lips. IMPRESSION: 1: No acute abdominal abnormality identified. Reviewed, dictated and finalized at location A.
== END 2020-03-27 11:20 | disposition home or self-care (01) ==
PROVIDERS: PCP Family Medicine; Visit Provider Urology
DX: N20.2 Calculus of kidney with calculus of ureter (principal)
CPT/HCPCS: 74018; 74176

== ENCOUNTER → 2020-12-07 15:37 | Outpatient (CLI) | payer OTHER, SELFPAY ==
--- NOTE | ~2020-12-07 | CT_ITS ---
EXAMINATION: CT abdomen pelvis wo/w con DATE: 12/07/2020 16:29 INDICATION: Gross hematuria. Left flank pain. Left lower quadrant abdominal pain. TECHNIQUE: Computed tomography (CT) of the abdomen and pelvis was performed without and with intraven ous contrast using a total of 130 mL Omnipaque-350 intravenous contrast with a double-bolus technique for simultaneous opacification of the renal parenchyma and renal collecting system. Automated exposu re control and iterative reconstruction technique were employed. The dose-length product was 2240.84 mGy-cm. COMPARISON: CT abdomen and pelvis 03/27/2020, 01/13/2017 FINDINGS: The visualized portions of the lung bases demonstrate groundglass opacities and septal thickening. No pleural effusion. The heart size is normal. There are coronary artery calcifications. No pericardial effusion. The liver is normal. There are changes of cholecystectomy. The spleen, pancreas, adrenal g lands, and right kidney is normal. There is mild left hydronephrosis and hydroureter. There is a 3 mm stone in left ureter where crosses the iliac vessels. The ureters opacify normally. The bladder is n ot well distended. The prostate is mildly enlarged. There is diverticulosis of the colon without evid ence of diverticulitis. The appendix is not visualized. There are no pathologically enlarged lymph no niki. There is no free intraperitoneal fluid. There is moderate lumbar spondylosis. There is mild pouch maker jeovanny anterior wedging of T12 vertebral body. IMPRESSION: 1. 3 mm stone in mid left ureter with mild left hydronephrosis and hydroureter. 2. Diffuse lung disease similar to prior imaging. The differential diagnosis includes recurrent mild pulmonary edema, nonspecific interstitial pneumonia (NSIP), desquamative interstitial pneumonia (DIP) , and hypersensitivity pneumonitis. Reviewed, dictated and finalized at location A. IMPRESSION: 1. 3 mm stone in mid left ureter with mild left hydronephrosis and hydroureter. 2. Diffuse lung disease similar to prior imaging. The differential diagnosis in cludes recurrent mild pulmonary edema, nonspecific interstitial pneumonia (NSIP ), desquamative interstitial pneumonia (DIP), and hypersensitivity pneumonitis.
--- NOTE | ~2020-12-07 | XR_ITS ---
XR abdomen/kub 1V DATE: 12/07/2020 16:26 INDICATION: Gross hematuria TECHNIQUE: AP projection, 2 views COMPARISON: 12/12/2020 CT abdomen pelvis FINDINGS: No definite correlate for the 3 mm left ureteral calculus at approximately the L5-S1 level on the 01/03/2021 CT abdomen pelvis is identified. Associated as are intact. No visceromegaly is evident. No evidence of bowel obstruction. There is a prominent of fecal material in the right colon. Status post cholecystectomy. IMPRESSION: Nonspecific abdomen Radiographically occult 3 mm stone of the left ureter at approximately L5-S1 level on CT ab domen pelvis examination Status post cholecystectomy Reviewed, dictated and finalized at Location A. Reviewed, dictated and finalized at location A. IMPRESSION: Nonspecific abdomen Radiographically occult 3 mm stone of the left ureter at approximately L5-S1 le carol on CT abdomen pelvis examination Status post cholecystectomy
[2020-12-07 16:10] LABS: Estimated Glomerular Filt Rate > 60
== END ==
PROVIDERS: Visit Provider Urology
DX: R31.0 Gross hematuria (principal); N13.2 Hydronephrosis with renal and ureteral calculous obstruction; N13.4 Hydroureter; J98.4 Other disorders of lung; Z90.49 Acquired absence of other specified parts of digestive tract
CPT/HCPCS: 74018; 74178; Q9967

== ENCOUNTER 2020-12-11 12:11 | Observation (INO) | payer OTHER, SELFPAY ==
--- NOTE | ~2020-12-11 | XR_ITS ---
EXAMINATION: XR abdomen/kub 1V DATE: 12/12/2020 09:37 INDICATION: Left ureteral stone. TECHNIQUE: A supine view of the abdomen on 2 radiographs was obtained. COMPARISON: CT abdomen and pelvis since 12/11/20 FINDINGS: There are no dilated loops of bowel. Surgical clips in the right upper quadrant are likely from cholecystectomy. There is a 4 mm stone in distal left ureter. IMPRESSION: 1. 4 mm stone in distal left ureter. Reviewed, dictated and finalized at location A.
--- NOTE | ~2020-12-11 | CT_ITS ---
EXAMINATION: CT abdomen pelvis wo con DATE: 12/11/2020 15:25 INDICATION: Left-sided flank pain. TECHNIQUE: Computed tomography (CT) of the abdomen and pelvis was performed without intravenous contr ast. The dose-length product was 351.33 mGy-cm. Automated exposure control and iterative reconstructi on technique were employed. COMPARISON: CT dated 12/07/2020 FINDINGS: Bibasilar dependent atelectasis. Diffuse patchy groundglass opacification. Heart size stephany l. No significant pleural or pericardial effusion. There is a distal left ureteral stone measuring 4 mm with moderate left hydroureteronephrosis as well as perinephric and periureteral edema. No renal s tones. Fatty infiltration of the liver. Status post cholecystectomy. The spleen, pancreas, adrenal glands an d right kidney are unremarkable. There are changes of appendectomy. Prostate gland is mildly enlarged . Colonic diverticulosis without diverticulitis. Mild chronic anterior wedge deformity of T12. IMPRESSION: 1. Interval inferior migration of distal left ureteral stone measuring 4 mm. Worsening left hydroneph rosis proximal to this stone. 2: Diffuse lung disease without significant change from prior study. Reviewed, dictated and finalized at location B. IMPRESSION: 1. Interval inferior migration of distal left ureteral stone measuring 4 mm. Wo rsening left hydronephrosis proximal to this stone. 2: Diffuse lung disease without significant change from prior study.
--- NOTE | ~2020-12-11 | XR_ITS ---
EXAMINATION: XR retrograde pyelo w/stent LT DATE: 12/12/2020 16:07 INDICATION: Internal ureteral stent placement TECHNIQUE: Fluoroscopic images from a left internal ureteral stent placement are submitted for review . 13 seconds of fluoroscopy time. FINDINGS: There is a left double-J internal ureteral stent projecting in expected position, with proximal Marion loop at the level of the renal pelvis and distal loop in the pelvis within the bladder lumen. IMPRESSION: 1. Left internal ureteral stent placement. Please refer to real-time procedural findings for detail s. Reviewed, dictated and finalized at location B. IMPRESSION: 1. Left internal ureteral stent placement. Please refer to real-time procedur al findings for details.
[2020-12-11 12:15] VITALS: BP 158/82; PULSE 85; RESP 20; TEMP 36.2; O2SAT 100
[2020-12-11 12:38] LABS: Basophils Percent Auto 0.3 % (0.2-1.2); Eosinophils Percent Auto 0.1 % (0-4.4); Hematocrit 44.2 % (42.0-52.0); Hemoglobin 14.9 g/dL (14.0-18.0); Immature Granulocyte Absolute 0.07 K/mm3 (0.00-0.031); Immature Granulocyte Percent A 0.6 % (0-0.5); Lymphocytes Absolute Auto 1.41 K/mm3 (0.9-3.2); Lymphocytes Percent Auto 11.6 % (18.3-44.2); Mean Corpuscular HGB Conc 33.7 g/dl (32-36); Mean Corpuscular Hemoglobin 28.9 pg (26-34); Mean Corpuscular Volume 85.8 fl (80-100); Mean Platelet Volume 11.7 fl (7.4-10.4); Monocytes Absolute Auto 0.8 K/mm3 (0.1-0.6); Monocytes Percent Auto 6.2 % (2.6-8.5); Neutrophils Absolute Auto 9.9 K/mm3 (1.3-6.7); Neutrophils Percent Auto 81.2 % (45.5-73.1); Platelet Count Result 159 k/mm3 (150-375); Red Blood Count 5.15 M/mm3 (4.6-6.20); Red Cell Distribution Width 12.7 % (11.5-14.5); White Blood Count 12.2 K/mm3 (4.5-10.0)
[2020-12-11 12:52] LABS: Add Urine Microscopic? YES; Appearance Urine Clear (Clear); Bilirubin Urine Negative (Negative); Blood Urine 1+ (Negative); Color Urine Yellow (Yellow); Glucose Urine UA Negative (Negative); Ketones Urine Negative (Negative); Leukocyte Esterase Ur Negative LEU/UL (Negative); Mucus Urine Rare /lpf; Nitrate Urine Negative (Negative); Protein Urine Negative (Negative); RBC Urine 21-50 /hpf (0-2); Squamous Epithelial Cell Urine Rare /hpf (Few); Urobilinogen Urine Negative mg/dL (<2.0); WBC Urine 0-3 /hpf
--- NOTE | 2020-12-11 12:52 | ED.ABDPAIN ---
HPI - Abdominal Pain General Chief Complaint: Abdominal Pain Stated Complaint: flank pain Time Seen by Provider: 12/11/20 12:31 Source: patient and family Mode of arrival: ambulatory Limitations: no limitations History of Present Illness HPI narrative: Patient is 55 years old male presented to the ED with left flank pain radiating to left lower quadrant started 5 days ago, CT scan of the abdomen and pelvis with and without contrast at that time showed 3 mm stone in the mid left ureter with mild left hydronephrosis and hydroureter. Patient was discharged home on [id number] medication. Today was notified by his urologist to go to the emergency room for possible admission. Patient denies any fever, chills, and patient been nauseated with intermittent vomiting. Patient denies any aggravating or relieving factors. History of cholecystectomy appendectomy. Does not take medicine at home, does not smoke or drink or uses drugs. Related Data Home Medications Medication Instructions Recorded Confirmed cetirizine 10 mg PO DAILY 10/26/19 11/08/19 cholecalciferol (vitamin D3) 50 mcg PO DAILY 10/26/19 11/08/19 [Vitamin D3] pantoprazole 40 mg PO DAILY 10/26/19 11/08/19 Allergies Allergy/AdvReac Type Severity Reaction Status Date / Time No Known Allergies Allergy Verified 12/11/20 12:19 Review of Systems Review of Systems: Narrative: CONSTITUTIONAL: Denies fever, chills, or sweats. EYES: Denies visual changes, redness, or discharge. ENT: Denies rhinorrhea, congestion, sore throat, or otalgia. CARDIOVASCULAR: Denies chest pain, palpitations, or edema. RESPIRATORY: Denies cough or dyspnea. GASTROINTESTINAL: Denies abdominal pain, nausea, vomiting, or diarrhea. GENITOURINARY: Denies dysuria or hematuria. SKIN: Denies rash or itching. MUSCULOSKELETAL: Denies back pain, joint pain, or myalgia. NEUROLOGIC: Denies headache, numbness, or weakness. PSYCHIATRIC: Denies anxiety or depression. [facility] Past Medical History Medical History (Updated 12/11/20 @ 17:20 by Con Morris MD) Allergic rhinitis GERD (gastroesophageal reflux disease) Hepatic steatosis Kidney stones Migraine Obstructive sleep apnea on CPAP Surgical History Surgical History History of appendectomy History of laparoscopic cholecystectomy Family History Family History Father , At age 50 Acute myocardial infarction Mother In good health Social History Social History Social History: Primary care physician: Dr. Rock Israel Smoking status: Never smoker Second hand tobacco smoke exposure: No Alcohol intake: never Substance use: never Additional living arrangements comments: The patient lives with his of 39 years and her youngest daughter who is 20 years old. He has 4 daughters in total. He has 5 grandchildren. 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 Gender identity (if verbalized by the patient): Male Spiritual care concerns: No Agree to blood products: Yes Exam Narrative: Exam Narrative: General appearance: Well-developed, well-nourished Skin: Normal color Head: Normocephalic, nontraumatic Eyes: Clear conjunctiva ENT: Oropharynx normal, ears normal, nose normal Neck: Supple, nontender Chest and respiratory: Airway patent, no respiratory distress, no accessory muscle use Heart: Regular rate/rhythm Abdomen: Soft, diffuse tenderness left lower quadrant, severe tenderness left flank Vascular: Normal peripheral pulses, normal capillary refill. Musculoskeletal: Normal range of motion, nontender back Neurologic: Alert and oriented ?3, SENIOR WEB ARCHITECT is normal as tested, no gross motor deficit
[2020-12-11 13:11] LABS: Albumin Level 4.3 g/dL (3.5-5.1); Alkaline Phosphatase 84 U/L (38-126); Anion Gap 14 mmol/L (8-16); Aspartate Amino Transferase 40 U/L (17-59); Bilirubin,Total 0.6 mg/dL (0.2-1.3); Blood Urea Nitrogen 16 mg/dL (9-20); Calcium 9.2 mg/dL (8.4-10.2); Carbon Dioxide 18 mmol/L (22-30); Chloride 104 mmol/L (98-107); Estimated CRCL calculation 82 ml/min; Estimated Glomerular Filt Rate > 60; Glucose 130 mg/dL (75-110); Potassium 3.9 mmol/L (3.4-5.0); Sodium 136 mmol/L (137-145)
[2020-12-11] MEDS: HYDROmorphone HCL INJ (*CRX) 1 MG/ML SYR 0.5 MG IV PUSH ×3 (13:21→16:01)
[2020-12-11] MEDS: ONDANSETRON INJ 4 MG/2 ML VIAL IV PUSH (13:23)
[2020-12-11] MEDS: SODIUM CHLORIDE 0.9% IV 1,000 ML 999 ML IV CONT (13:23)
[2020-12-11 13:33] LABS: Alanine Aminotransferase 55 U/L (4-50)
[2020-12-11] MEDS: TAMSULOSIN HCL 0.4 MG CAPSULE PO (13:59)
[2020-12-11 16:02] VITALS: BP 153/97; PULSE 79; RESP 18; O2SAT 98
[2020-12-11] MEDS: KETOROLAC 30 MG/ML VIAL (*BKC) IV PUSH (16:45)
--- NOTE | 2020-12-11 17:53 | PM.IMHP ---
H&P: HPI History of Present Illness Date/Time: 12/11/20 17:53 This is a 55-year-old gentleman history of stone disease. His last episode was in March of 2020. The passed on its own. He had acute onset of left-sided flank pain about 4 days ago. This prompted a visit to the emergency room. He was sent home on pain medications. He is now failed a trial of conservative stone passage. He is back in the emergency room. He continues to note flank pain. He has nausea without vomiting. He has no fevers or chills. He has no symptoms of urinary tract infection. No gross hematuria. He will be admitted to the floor with stone intervention tomorrow. Chief Complaint: ureteral stone Review of Systems Review of Systems: All systems reviewed & are unremarkable except as noted in HPI and below PMFSH Past Medical History Medical History (Updated 12/11/20 @ 17:58 by Ted Verma MD) Allergic rhinitis GERD (gastroesophageal reflux disease) Hepatic steatosis Kidney stones Migraine Obstructive sleep apnea on CPAP Surgical History Surgical History History of appendectomy History of laparoscopic cholecystectomy Family History Family History Father , At age 50 Acute myocardial infarction Mother In good health Social History Social History Social History: Primary care physician: Dr. Rock Israel Smoking status: Never smoker Second hand tobacco smoke exposure: No Alcohol intake: never Substance use: never Additional living arrangements comments: The patient lives with his of 39 years and her youngest daughter who is 20 years old. He has 4 daughters in total. He has 5 grandchildren. 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 Gender identity (if verbalized by the patient): Male Spiritual care concerns: No Agree to blood products: Yes Meds Home Medications and Allergies Home Medications Medication Instructions Recorded Confirmed Type cetirizine 10 mg PO DAILY 10/26/19 11/08/19 History cholecalciferol (vitamin D3) 50 mcg PO DAILY 10/26/19 11/08/19 History [Vitamin D3] pantoprazole 40 mg PO DAILY 10/26/19 11/08/19 History sumatriptan succinate 100 mg tablet See Rx Instructions .ROUTE 01/03/20 Rx .COMPLEX PRN #7 tablet azithromycin 250 mg tablet See Rx Instructions PO .COMPLEX #6 11/17/20 Rx tablet Allergies Allergy/AdvReac Type Severity Reaction Status Date / Time No Known Allergies Allergy Verified 12/11/20 12:19 Vital Signs Vital Signs - 24 hr 12/11/20 12:15 12/11/20 16:02 Temperature 97.1 F L Pulse Rate 85 79 Respiratory Rate 20 18 Blood Pressure 158/82 H 153/97 H Pulse Oximetry 100 98 Exam Const: General: cooperative and no acute distress HENMT: Head: normal to inspection Face and sinus: normal facial exam Mouth: Yes Normal oral and palatal mucosa present Eyes: General: appearance normal, both eyes and all related structures Neck: Neck: normal visual inspection Resp: Effort & Inspection: normal respiratory effort, able to speak in complete sentences and no cough GI: Inspection: normal to inspection Back/Spine/Pelvis: Back: CVA tenderness Skin: General skin exam: normal color Neuro: General: patient oriented x3 Extrem: General: normal to inspection Psych: Appearance: grossly normal H&P: Results Labs Labs: Short CBC 12/11/20 Range/Units 12:23 WBC 12.2 H (4.5-10.0) K/mm3 Hgb 14.9 (14.0-18.0) g/dL Hct 44.2 (42.0-52.0) % Plt Count 159 (150-375) k/mm3 BMP 12/11/20 12:23 Sodium 136 L Potassium 3.9 Chloride 104 Carbon Dioxide 18 L BUN 16 Creatinine 1.00 Glucose 130 H Calcium 9.2 Liver Function 12/11/20 Range/Units 12:23 Total Bilirubin 0.6 (0.2-1.3) mg/dL Direct Bilirubin 0.0 (
[2020-12-11 18:02] VITALS: BP 150/79; PULSE 70; RESP 18; O2SAT 100
--- NOTE | 2020-12-11 19:23 | ADMGEN ---
This patient, Fermín White, was admitted to [address] [place] [address] Room 300-01. Patient/family oriented to hospital policies and general routines including ID bracelet, bed and alarms, visiting hours, pain management, procedures, bathroom and other care routines, personal items, smoking policy, room service/diet, and visiting hours. Information on how to activate the Rapid Response Team has been discussed. Patient/Family are encouraged to report perceived risks to care and to ask questions if they do not understand what they are told or what they should do.
[2020-12-11 19:30] VITALS: BP 136/74; PULSE 77; RESP 18; TEMP 37.2; O2SAT 98; BMI 33.2
[2020-12-11] MEDS: SODIUM CHLORIDE 0.9% IV 1,000 ML 50 ML IV CONT (19:37)
[2020-12-11 21:34] VITALS: BP 122/57; PULSE 80; RESP 18; TEMP 37.2; O2SAT 98
[2020-12-12] VITALS (9 sets, daily range): BP systolic 111–137; BP diastolic 62–82; PULSE 69–90; RESP 16–20; TEMP 36.3–37.3; O2SAT 94–100
--- NOTE | 2020-12-12 10:37 | WPDHPUPDATE1 ---
History and Physical Update Update Date/Time: 12/12/20 10:37 History and Physical has been reviewed, including an updated exam of the patient. There are NO changes in the patient's condition. Risks, benefits, and alternatives have been discussed and questions answered. Patient agrees to proceed with procedure. Proceed with cystoscopy, left retrograde pyelogram, left ureteroscopy with stone extraction, possible laser, left ureteral stent placement
--- NOTE | 2020-12-12 10:42 | WPDUROPN2 ---
Progress Note: A&P Assessment and Plan (1) Calculus of left ureter: Code(s): N20.1 - Calculus of ureter Status: Acute Assessment and Plan: KUB this morning revealed persistent 4 mm distal left ureteral calculus. At this point he has had 2 trips to the hospital. He would like definitive management. Will proceed with cystoscopy, left retrograde pyelogram, left ureteroscopy with stone extraction, possible laser, possible stent Subjective Subjective Date/Time Seen: 12/12/20 10:42 Feels slightly better but has not passed the stone as of yet. Review of Systems Review of Systems: All systems reviewed & are unremarkable except as noted in HPI and below Exam Const: General: cooperative and comfortable Eyes: General: appearance normal, both eyes and all related structures Chest: Chest palpation & inspection: normal inspection of the chest Resp: Effort & Inspection: normal respiratory effort Objective Data Vital Signs Vital Signs: Vital Signs - 24 hr 12/11/20 12:15 12/11/20 16:02 12/11/20 18:02 Temperature 36.2 C L Pulse Rate 85 79 70 Respiratory Rate 20 18 18 Blood Pressure 158/82 H 153/97 H 150/79 H Pulse Oximetry 100 98 100 12/11/20 19:30 12/11/20 21:34 12/12/20 05:31 Temperature 37.2 C 37.2 C 37.3 C Pulse Rate 77 80 78 Respiratory Rate 18 18 18 Blood Pressure 136/74 122/57 L 118/70 Pulse Oximetry 98 98 97 Intake/Output Intake/Output: Intake & Output 12/09/20 12/10/20 12/11/20 12/12/20 23:59 23:59 23:59 23:59 Intake Total 1000 350 Output Total 1100 Balance 1000 -750 Meds/Results Medications: Active Medications Generic Name Dose Route Start Last Admin Trade Name Freq PRN Reason Stop Dose Admin Hydromorphone HCl 0.5 mg 12/11/20 17:14 Hydromorphone Hcl Inj (*Crx) 1 Mg/Ml Syr IV PUSH Q4H PRN Pain Rated 7-10 Acetaminophen 1,000 mg in 100 mls @ 400 mls/hr 12/11/20 17:14 Ofirmev 1,000 Mg Ivpb IVPB 12/12/20 17:15 Q6H PRN Mild Pain (1-3) or Fever Sodium Chloride 1,000 mls @ 50 mls/hr 12/11/20 17:15 12/11/20 19:37 Normal Saline Iv IV CONT 50 mls/hr .Q20H CHRISTINE Administration Ketorolac Tromethamine 30 mg 12/11/20 17:14 Ketorolac 30 Mg/Ml Vial (*Bkc) IV PUSH 12/16/20 17:15 Q6H PRN Pain Rated 4-6 Ondansetron HCl 4 mg 12/11/20 17:14 Ondansetron Inj 4 Mg/2 Ml Vial IV PUSH Q4H PRN Nausea Radiology Results: ITS Impressions Abdomen/Pelvis CT 12/11/20 15:32 IMPRESSION: 1. Interval inferior migration of distal left ureteral stone measuring 4 mm. Worsening left hydronephrosis proximal to this stone. 2: Diffuse lung disease without significant change from prior study. Abdomen X-Ray 12/12/20 09:46 IMPRESSION: 1. 4 mm stone in distal left ureter. Labs Labs: Laboratory Results - last 24 hr 12/11/20 12/11/20 12/11/20 12:23 12:23 12:31 WBC 12.2 H RBC 5.15 Hgb 14.9 Hct 44.2 MCV 85.8 MCH 28.9 MCHC 33.7 RDW 12.7 Plt Count 159 MPV 11.7 H Immature Gran % (Auto) 0.6 H Neut % (Auto) 81.2 H Lymph % (Auto) 11.6 L [place] % (Auto) 6.2 Eos % (Auto) 0.1 Baso % (Auto) 0.3 Lymph # (Auto) 1.41 [place] # (Auto) 0.8 H Eos # (Auto) 0.0 Baso # (Auto) 0.0 Abs Immat Gran (auto) 0.07 H Absolute Neuts (auto) 9.9 H Absolute Nucleated RBC 0.0 Nucleated RBC % 0.0 Sodium 136 L Potassium 3.9 Chloride 104 Carbon Dioxide 18 L Anion Gap 14 BUN 16 Creatinine 1.00 Estim Creat Clear Calc 82 Estimated GFR > 60 Glucose 130 H Calcium 9.2 Total Bilirubin 0.6 Direct Bilirubin 0.0 AST 40 ALT 55 H Alkaline Phosphatase 84 Total Protein 8.0 Albumin 4.3 Urine Color Yellow Urine Appearance Clear Urine pH 6.0 Ur Specific [place] 1.020 Urine Protein Negative Urine Glucose (UA) Negative Urine Ketones Negative Ur Blood (Man) 1+ H Urine Nitrate Negative
--- NOTE | 2020-12-12 14:01 | PC.NURSE ---
To OR per wheelchair, IV #20 RT FA. Report given to DINESH Payne.
--- NOTE | 2020-12-12 14:27 | P.PNAN_ITS ---
Anes - Initial Pre Proc Eval Procedure: Operation Date: 12/12/20 16:00 Proposed Procedures p Cystoscopy,Left Retrograde Pyelogram, Left Ureteroscopy,Left Stone Extraction,Possible Holmium Laser,Possible Stent Placement - Korey Pritchett MD Date/Time: 12/12/20 14:27 Surgeon: Ted Verma MD Pre Op Diagnosis: Left Ureterolithiasis Patient Data Age: 55 Gender: M Height: 1.73 m Weight: 99.1 kg Last Vital Signs Temp 37.2 C 12/12/20 14:00 Pulse 77 12/12/20 14:00 Resp 16 12/12/20 14:00 BP 124/80 12/12/20 14:00 Pulse Ox 97 12/12/20 14:00 Allergies Allergy/AdvReac Type Severity Reaction Status Date / Time No Known Allergies Allergy Verified 12/12/20 14:14 Home Medications Medication Instructions Recorded Confirmed Type cholecalciferol (vitamin D3) 50 mcg PO DAILY 10/26/19 12/11/20 History [Vitamin D3] pantoprazole 40 mg PO DAILY 10/26/19 12/11/20 History sumatriptan succinate 100 mg tablet See Rx Instructions .ROUTE 01/03/20 12/11/20 Rx .COMPLEX PRN #7 tablet Patient hx anesthesia problems: none Family hx anesthesia problems: none PMFSH Past Medical History Medical History (Updated 12/12/20 @ 14:28 by Gary Marti MD) Allergic rhinitis GERD (gastroesophageal reflux disease) Hepatic steatosis Kidney stones Migraine Obesity Obstructive sleep apnea on CPAP Surgical History Surgical History History of appendectomy History of laparoscopic cholecystectomy Family History Family History Father , At age 50 Acute myocardial infarction Mother In good health Social History Social History Social History: Primary care physician: Dr. Rock Israel Smoking status: Never smoker Second hand tobacco smoke exposure: No Alcohol intake: never Substance use: never Additional living arrangements comments: The patient lives with his of 39 years and her youngest daughter who is 20 years old. He has 4 daughters in total. He has 5 grandchildren. 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 Gender identity (if verbalized by the patient): Male Spiritual care concerns: No Agree to blood products: Yes Alis - Jone Final PreProcedure Day of Procedure 12/12/20 14:27 Patient weight: obese Heart: regular rate and rhythm Lungs: clear to auscultation and normal air movement Airway: Mallampati scale class II Neurological: alert and oriented Last oral intake: >/= 8 hours ASA classification: III Emergent: no Anesthetic plan: proceed Anesthesia type and monitoring: general LMA Informed Consent: The patient's anesthetic plan and its attendant risks and benefits were discussed with the patient/family/POA. Questions were solicited and answers provided to the satisfaction of the patient/family/POA.
[2020-12-12] MEDS: LACTATED RINGERS 1,000 ML 30 ML IV CONT (14:32)
[2020-12-12] MEDS: ceFAZolin 2 GM/D5W 50 ML 2 GM/50 ML BAG IVPB (15:52)
[2020-12-12] MEDS: LIDOCAINE HCL 2% GEL UROJET 10 ML PKG MUCOUS MEM (15:53)
--- NOTE | 2020-12-12 16:05 | W.PM.PROC2 ---
Procedure Note - Detailed Date of Procedure 12/12/20 Pre-op Diagnosis Left Ureterolithiasis Post-op Diagnosis same Procedure Performed Cystoscopy, left retrograde pyelogram, left ureteroscopy with stone extraction, left ureteral stent placement 4.8 Hungarian contour Surgeon Korey Pritchett MD Anesthesia general Description of Procedure Patient is taken the operative suite correctly identified. Once anesthesia was obtained he was placed in dorsal lithotomy position and prepped draped usual sterile fashion. Twenty-two Hungarian scope was inserted in the bladder. There is no tumors noted. Left ureteral orifice was cannulated with a guidewire. It was dilated with an 8/10 dilator. Rigid ureteral scope was then inserted. Using the escape basket we were able to retrieve the stone its entirety. Reinspection revealed no residual ureteral calculi. Pyelogram was then performed. 4.8 Hungarian contour stent was then placed with the proximal end coiled in the renal pelvis and the distal in the bladder. Bladder is drained 2% viscous lidocaine was inserted urethra patient is taken recovery stable condition. He will be discharged home later today if he tolerates everything. Follow-up in a week's time for stent removal. Urine Output 1,100 Drains Yes Packing No Pathology yes Complications No immediate complications Condition stable Disposition PACU
--- NOTE | 2020-12-13 07:41 | WPDANESPN ---
Anes - Prog Note Post-Op Date/Time: 12/13/20 07:41 Cardiovascular status: normal Respiratory status: normal Airway patency: baseline Mental status: baseline Post-Op hydration status: normal Vital Signs: Last Vital Signs Temp 97.8 F 12/12/20 17:45 Pulse 69 12/12/20 17:45 Resp 18 12/12/20 17:45 BP 137/82 12/12/20 17:45 Pulse Ox 97 12/12/20 17:45 Pain Score (VAS): 0 I/O: Intake & Output 12/12/20 12/12/20 12/13/20 15:59 23:59 07:59 Intake Total 50 640 Output Total 1600 Balance 50 -960 Laboratory Tests 12/11/20 12:23 12/11/20 12:23 Patient Feedback: Patient satisfied with anesthetic care.
--- NOTE | 2021-01-02 15:40 | P.DS_ITS ---
DS: Admitting Diagnosis Admitting Diagnosis Admitting Diagnosis: Left ureteral calculus with renal colic DS: Summary Hospital Course Reason for hospitalization: patient was admitted for renal colic secondary to l eft ureteral calculus. Hospital Course: Patient underwent left ureteroscopy with stone extraction and stent placement. Postoperatively did well. Patient will be discharged home will follow-up in 1 weeks time for stent removal. Time Spent with Patient Time attestation: Total time spent providing and/or coordinating discharge services: DS: Data Data Completed and Pending Completed studies during hospitalization: Pending at discharge 12/12/20 16:01 Surgical [PTH] Routine Discharge Plan Discharge Attending physician on discharge: Korey Pritchett Consulting providers: Jose Cooper ; Juan Carlos Zavala V. ; Gary Marti Discharging Clinician: Korey Pritchett Patient Disposition: Home, Self-Care Activity: november shower Diet: as tolerated Discharge Instructions: Follow-up in 1-2 weeks for stent removal. Call for appointment. Patient Instructions: Antibiotic Form, Kidney Stones (GEN), Pain Management (GEN), Flank Pain (ED), Cystoscopy (DC) Stand Alone Forms: General Discharge Information Follow-up/Referrals: Korey Pritchett MD [Physician] - Call for Appointment Discharge Medications: New sulfamethoxazole-trimethoprim [Bactrim DS] 800-160 mg tablet 1 tablet PO Q12H Qty: 6 RF: 0 Continued cholecalciferol (vitamin D3) [Vitamin D3] 50 mcg (2,000 unit) Capsule 50 mcg PO DAILY RF: 0 pantoprazole 40 mg tablet,delayed release (DR/EC) 40 mg PO DAILY RF: 0 No Action sumatriptan succinate 100 mg tablet See Rx Instructions .ROUTE .COMPLEX PRN (Reason: Headache) Qty: 7 RF: 0 Date of admission: 12/11/20 17:14 Primary Care Provider: Rock Israel Admitting Provider: Ted Verma Attending physician on admission: Korey Pritchett Condition: Stable
== END 2020-12-12 18:00 | disposition home or self-care (01) ==
LOC: ANHED 17:20 → ANH3MEDSUR 21:06
PROVIDERS: Emergency Medicine; Admitting Provider Urology; Emergency Provider Emergency Medicine; PCP Family Medicine; Visit Provider Urology
PROC: (CPT 52352; principal; 2020-12-12 16:00)
DX: N13.2 Hydronephrosis with renal and ureteral calculous obstruction (principal); K75.81 Nonalcoholic steatohepatitis (NASH); G47.33 Obstructive sleep apnea (adult) (pediatric); K21.9 Gastro-esophageal reflux disease without esophagitis; E66.9 Obesity, unspecified; Z68.33 Body mass index [BMI] 33.0-33.9, adult
CPT/HCPCS: 52332; 52352; 36415; 74018; 74176; 74420; 80048; 80076; 81001; 82365; 85025; 88300; 96360; 96361; 96374; 96375; 96376; 99285; A9270; C1769; C2617; G0378; J0690; J1100; J1170; J1885; J2250; J2405; J2704; J3010; J7030; J7120; Q9966

== ENCOUNTER → 2021-07-21 08:00 | Outpatient (CLI) | payer OTHER, SELFPAY ==
--- NOTE | ~2021-07-21 | US_ITS ---
EXAMINATION: US right upper quadrant EXAM DATE: 07/21/2021 08:38 INDICATION: Fatty liver,non-alcoholic. TECHNIQUE: Multiple grayscale and Doppler images of the abdomen right upper quadrant were obtained (b y a technologist who performed the scan) and subsequently reviewed. Comparison is made to prior exami nation from 12/12/2018. FINDINGS: The pancreatic head and body are normal in appearance. The pancreatic tail is not visualized. There is hepatic steatosis. There are no focal liver lesions identified. There is no evidence of intrah epatic biliary duct dilation. Portal venous flow was seen in the hepatopedal, normal direction and h as normal Doppler waveform. No right-sided hydronephrosis. Common bile duct measures 4 mm, which is normal. The gallbladder fossa is unremarkable. IMPRESSION: 1. Hepatic steatosis. Reviewed, dictated and finalized at location G. R [employer] IMPRESSION: 1. Hepatic steatosis.
== END ==
PROVIDERS: PCP Family Medicine; Visit Provider Internal Medicine Gastroenterology
DX: K76.0 Fatty (change of) liver, not elsewhere classified (principal)
CPT/HCPCS: 76705

== ENCOUNTER → 2023-03-07 10:10 | Outpatient (CLI) | payer OTHER, SELFPAY ==
--- NOTE | ~2023-03-07 | US_ITS ---
Limited Abdominal Sonogram: Real-time sonographic imaging of the right upper quadrant was performed. Clinical History: Hepatic steatosis Findings: The liver appears echogenic, with no evidence of mass lesion or bile duct dilatation. Main portal vein demonstrates normal direction of flow. The gallbladder is absent, compatible prior gabby cystectomy. The common bile duct measures 6 mm. The pancreas is obscured by bowel gas shadowing. Rig ht kidney measures 12.0 cm in length, without evidence for hydronephrosis. Impression: Diffuse fatty infiltration of the liver. Status post cholecystectomy. Reviewed, dictated and finalized at location . Impression: Diffuse fatty infiltration of the liver. Status post cholecystectomy.
== END ==
PROVIDERS: PCP Internal Medicine Gastroenterology; Visit Provider Internal Medicine Gastroenterology
DX: N28.89 Other specified disorders of kidney and ureter (principal); K76.0 Fatty (change of) liver, not elsewhere classified; Z90.49 Acquired absence of other specified parts of digestive tract
CPT/HCPCS: 76705

== ENCOUNTER → 2023-08-06 12:41 | Outpatient (CLI) | payer OTHER, SELFPAY ==
--- NOTE | ~2023-08-06 | CT_ITS ---
EXAMINATION: CT abdomen pelvis wo/w con DATE: 08/06/2023 13:21 INDICATION: Gross hematuria. History of kidney stones. TECHNIQUE: Computed tomography (CT) of the abdomen and pelvis was performed without and subsequently with 130 CC Omnipaque 350 intravenous contrast. Automated exposure control and iterative reconstructi on technique were employed. Exam dose: 2276.58 mGy-cm total exam DLP. COMPARISON: CT abdomen pelvis FINDINGS: Mild emphysematous changes are suggested. There is patchy groundglass density of the lungs which may indicate small airways disease. No pulmonary consolidation is noted. Heart size is within normal range. No pericardial or pleural effusion. Status post cholecystectomy. No bile duct or pancreatic duct dilatation. No hepatic, splenic, pancreatic, adrenal or renal space-occupying mass lesion is detected. The urinar y bladder is unremarkable. No urinary tract calculus or hydroureteronephrosis. Status post appendectomy. Diverticulosis of the colon; no CT evidence of diverticulitis. No bowel obs truction, bowel wall thickening, pneumatosis or intraperitoneal free air is detected. Line there is a therosclerotic calcification but normal caliber of the abdominal aorta. No intraperitoneal or retrope ritoneal or pelvic mass lesion or adenopathy or ascites. Small bilateral fat-containing inguinal hernias, left greater than right. Degenerative changes of the thoracic and lumbar spine and bilateral hip osteoarthritis. IMPRESSION: No urinary tract calculus, obstruction or mass lesion is detected Status post cholecystectomy Status post appendectomy Diverticulosis of the colon Reviewed, dictated and finalized at Location [facility]. Reviewed, dictated and finalized at location B. O TECHNOLOGIST
[2023-08-06 12:58] LABS: Estimated Glomerular Filt Rate > 60
== END ==
PROVIDERS: PCP Nurse Practitioner Family; Visit Provider Nurse Practitioner Family
DX: R31.0 Gross hematuria (principal); K57.30 Diverticulosis of large intestine without perforation or abscess without bleeding; Z90.49 Acquired absence of other specified parts of digestive tract; Z90.89 Acquired absence of other organs
CPT/HCPCS: 74178; Q9967

== ENCOUNTER 2023-12-26 14:28 | Outpatient (CLI) | payer OTHER, SELFPAY ==
--- NOTE | ~2023-12-26 | XR_ITS ---
EXAMINATION: XR fl inj shoulder RT - MR/CT DATE: 12/26/2023 15:09 INDICATION: Right shoulder pain possible rotator cuff tear. TECHNIQUE: A time-out was performed to verify the patient's name, date of , and procedure to b e performed. The procedure including the risks, benefits, and alternatives was discussed with the pat ient. Risks discussed included bleeding and infection. The patient understood the risks and agreed to proceed. The skin overlying the right glenohumeral joint was prepped and draped in usual sterile fa shion. Anesthetic was administered with 1% lidocaine subcutaneously. A 22 G needle was advanced und er fluoroscopic guidance into the joint. Injection of 1 mL of Omnipaque 240 confirmed intra-articula r position of the needle. Subsequently, injectate consisting of 12 mL of 2:1:1 mixture of sterile sa line:Omnipaque 240:1% lidocaine mixed 200:1 with 529 mg/mL Multihance gadolinium contrast was instil led. Washout of contrast was seen confirming intra-articular administration. The needle was removed a nd the entry site was cleaned and dressed. There were no immediate complications. Fluoroscopy exposu re time was 0.2 minutes. The total number of images was 139. Total DAP was 0.746 Gycm^2 FINDINGS: Real-time fluoroscopy demonstrates the needle and contrast in the right glenohumeral joint. Contrast is seen extending into the subacromial/subdeltoid bursa consistent with full-thickness rota tor cuff tear. See separate MRI report for further detail.. IMPRESSION: 1. Successful right glenohumeral joint injection of an dilute gadolinium contrast mixture for subsequ ent MRI arthrogram. 2. Full-thickness rotator cuff tear. See separate MRI arthrogram report for further detail. Reviewed, dictated and finalized at location A. IMPRESSION: 1. Successful right glenohumeral joint injection of an dilute gadolinium contra st mixture for subsequent MRI arthrogram. 2. Full-thickness rotator cuff tear. See separate MRI arthrogram report for fur ther detail.
--- NOTE | ~2023-12-26 | MR_ITS ---
EXAMINATION: MR shoulder RT w con DATE: 12/26/2023 15:52 INDICATION: Right shoulder strain with possible rotator cuff tear TECHNIQUE: Magnetic resonance imaging (MRI) of the right shoulder was performed following intra-keisha cular gadolinium contrast injection and without intravenous contrast. Details of the glenohumeral sam nt injection have been dictated separately. Sequences included axial T2-weighted FS FSE, axial T1-we ighted FS FSE, coronal oblique T1-weighted FS FSE, coronal oblique T2-weighted FSE, sagittal T2-weigh jam FS FSE, sagittal T1-weighted FSE, and ABER (abduction external rotation) T1-weighted FS FSE. COMPARISON: None. FINDINGS: Coracoacromial arch: The acromion undersurface is curved in morphology (type II). There is mild thickening of the acromia l side of the coracoacromial ligament. Moderate acromioclavicular osteoarthritis. Rotator cuff: Moderate supraspinatus and infraspinatus tendinopathy with full-thickness tear extending 1.5 cm AP al milton the greater tuberosity footplate of the supraspinatus and conjoined portion of the supraspinatus and infraspinatus tendons. The torn bursal side of the tendon is retracted 1.8 cm medially and the ar ticular side of the tendons retracted 3.5 cm medially. The teres minor tendon is normal. Moderate sub scapularis tendinopathy with tear involving the entire medial collateral with of the central third of the subscapularis footplate and the lateral half of the cephalad and caudal thirds of the lesser tub erosity footplate. The bursal side of the tendon remains intact and contiguous with the intact transv erse humeral ligament. Rotator cuff muscle fatty atrophy, moderate severity at the central aspect of the subscapularis, mild infraspinatus and minimal of the supraspinatus. Biceps tendon, glenoid labrum and glenohumeral cartilage: The long head of the biceps tendon is medially subluxed across the medial rim of the intertubercular groove and extends craniocaudally between the intact bursal side of the subscapularis tendon and the remaining intact articular sides of the tendon. Mild tendinopathy of the long head biceps tendon with out discrete tear. Glenohumeral cartilage and glenoid labrum are normal. Bones and other: Normal marrow signal with no edema, fracture or abnormal marrow replacing process. Intra-articular co ntrast extends to the full-thickness rotator cuff tear into the subacromial/subdeltoid bursa. IMPRESSION: 1. Moderate supraspinatus and infraspinatus tendinopathy with full-thickness tear extending across th e greater tuberosity footplate of the supraspinatus and conjoined portion of the supraspinatus and in fraspinatus tendons. 2. Partial-thickness subscapularis tendon tear which allows medial subluxation of the long head bicep s tendon across the medial rim of the lesser tuberosity and into the subscapularis tendon tear defect . 3. Moderate acromioclavicular osteoarthritis. Reviewed, dictated and finalized at location A. IMPRESSION: 1. Moderate supraspinatus and infraspinatus tendinopathy with full-thickness te ar extending across the greater tuberosity footplate of the supraspinatus and c onjoined portion of the supraspinatus and infraspinatus tendons. 2. Partial-thickness subscapularis tendon tear which allows medial subluxation of the long head biceps tendon across the medial rim of the lesser tuberosity a nd into the subscapularis tendon tear defect. 3. Moderate acromioclavicular osteoarthritis.
== END 2023-12-26 14:29 | disposition home or self-care (01) ==
PROVIDERS: PCP Nurse Practitioner Family
DX: M75.101 Unspecified rotator cuff tear or rupture of right shoulder, not specified as traumatic (principal); M19.011 Primary osteoarthritis, right shoulder
CPT/HCPCS: 23350; 73222; 77002; A9577; Q9966

== ENCOUNTER 2024-03-22 15:41 | Outpatient (CLI) | payer OTHER, SELFPAY ==
--- NOTE | ~2024-03-22 | XR_ITS ---
XR abdomen/kub 1V Ordering provider: Rashel River MD History: . History of kidney stones . Comparison: December 12, 2020 FINDINGS: BOWEL: Nonobstructive bowel gas pattern. ORGANOMEGALY: None. Status post cholecystectomy. SIGNIFICANT PATHOLOGIC CALCIFICATIONS: None. OTHER: No free air is seen under the diaphragm. IMPRESSION: NO ACUTE ABDOMINAL FINDINGS. Reviewed, dictated and finalized at location A.
== END 2024-03-22 15:42 | disposition home or self-care (01) ==
LOC: MICIMG 15:42
PROVIDERS: PCP Urology; Visit Provider Urology
DX: Z87.442 Personal history of urinary calculi (principal)
CPT/HCPCS: 74018

== ENCOUNTER 2024-12-28 15:03 | Outpatient (CLI) | payer OTHER, SELFPAY ==
--- NOTE | ~2024-12-28 | XR_ITS ---
Exam: Abdomen 1V HISTORY: Flank pain COMPARISON: 03/22/2024 TECHNIQUE: Supine images of the abdomen FINDINGS: Bowel gas pattern is non-obstructive. There is no free air or deep sulci. 4 mm calculus projecting over the lower pole of the left kidney. No additional calcifications are appreciated. Clips within the right upper quadrant consistent with cholecystectomy. IMPRESSION: Nonspecific, nonobstructive bowel gas pattern. 4 mm calculus projecting over the lower pole of the kidney. Reviewed, dictated and finalized at location A.
--- NOTE | ~2024-12-28 | CT_ITS ---
Non-contrast CT scan of the Abdomen and Pelvis Clinical indication: Flank pain Technique: 2.5 mm axial scans were obtained through the abdomen and pelvis without intravenous or or al contrast. Dose reduction technique was used on this scan by utilizing automated exposure control a nd iterative reconstruction technique. The dose-length product (DLP) was 1112.23 mGy-cm. COMPARISON: 08/06/2023 Findings: Images through the lung bases reveal extensive groundglass opacification the visualized keven ng bases. 2 mm nonobstructing left renal stone present. No renal stone. No ureteral stone or hydronephrosis on either side. The liver, spleen, pancreas, and adrenals appear normal. Cholecystectomy clips are present. There is no aortic aneurysm. There is no evidence of bowel obstruction. Images through the pelvis were performed. There is no evidence of ascites or lymphadenopathy. Urinary bladder unremarkable. No pelvic mass seen. Impression: 2 mm nonobstructing left renal stone. Extensive groundglass opacity at the lung bases. Correlate for hypoventilatory change versus other et iologies such as bronchiolitis, asthma, hypersensitivity pneumonitis, chronic interstitial disease. Reviewed, dictated and finalized at [facility]. Impression: 2 mm nonobstructing left renal stone. Extensive groundglass opacity at the lung bases. Correlate for hypoventilatory change versus other etiologies such as bronchiolitis, asthma, hypersensitivity pneumonitis, chronic interstitial disease.
== END 2024-12-28 15:04 | disposition home or self-care (01) ==
LOC: MICIMG 15:08
PROVIDERS: PCP Family Medicine
DX: N20.0 Calculus of kidney (principal)
CPT/HCPCS: 74018; 74176

== ENCOUNTER 2025-01-31 17:53 | Emergency (ER) | payer OTHER, SELFPAY ==
--- OUTSIDE RECORDS SUMMARY | 2025-01-31 17:55 | XMS_ITS | Clinical Summary ---
Author Organization [facility] Address [facility] [place] [address] Care Team Providers Care Car Racer Name Role Phone Rock Israel MD Primary Care Provider [phone] Allergies No known active allergies Medications atorvastatin 10 MG tablet Take 10 mg by mouth daily. Active colesevelam 625 MG tablet Take 1,875 mg by mouth 2 (two) times daily with meals. Active Cholecalciferol (VITAMIN D) 1000 UNIT tablet Take 1,000 Units by mouth daily. Active pantoprazole 40 MG tablet Take 40 mg by mouth daily. Active SUMAtriptan 100 MG tablet Take 100 mg by mouth every 2 (two) hours as needed for Migraine. Take one tablet at onset of headache; may repeat after two hours if needed. Active Active Problems No known active problems Social History Tobacco Use Types Packs/Day Years Used Date Smoking Tobacco: Never Smokeless Tobacco: Never Alcohol Use Standard Drinks/Week Comments No 0 (1 standard drink = 0.6 oz pur e alcohol) Sex and Gender Information Value Date Recorded Sex Assigned at Not on file Legal Sex Male 7:30 PM CDT Gender Identity Not on file Sexual Orientation Not on file Last Filed Vital Signs Vital Sign Reading Time Taken Comments Blood Pressure 137/75 05/20/2017 6:44 PM REGIONAL MAINTENANCE MANAGER Pulse 89 05/20/2017 6:44 PM REGIONAL MAINTENANCE MANAGER Temperature 37.1 C (98.8 F) 05/20/2017 6:44 PM REGIONAL MAINTENANCE MANAGER Respiratory Rate 20 05/20/2017 6:44 PM REGIONAL MAINTENANCE MANAGER Oxygen Saturation 97% 05/20/2017 6:44 PM REGIONAL MAINTENANCE MANAGER Inhaled Oxygen Concentration - - Weight 95.3 kg (210 lb) 05/20/2017 6:44 PM REGIONAL MAINTENANCE MANAGER Height 170.2 cm (5' 7) 05/20/2017 6:44 PM REGIONAL MAINTENANCE MANAGER Body Mass Index 32.89 05/20/2017 6:44 PM REGIONAL MAINTENANCE MANAGER Plan of Treatment Health Maintenance Due Date Last Done Comments Colorectal Cancer Screening Colonoscopy (10 Years) 1964 Annual Physical 10/21/1967 Hepatitis C 1982 DTaP, Tdap and Td Vaccines ( 1 - Tdap) 10/21/1983 Pneumococcal Vaccine: 50+ Ye ars (1 of 1 - PCV) 2014 Zoster Vaccines (1 of 2) 2014 COVID-19 Vaccine (1 - 2023-2 5 season) 2024 RSV Immunization or 60+ Years (1 - 1-dose 75+ series) 10/21/2039 Meningococcal B Vaccine Aged Out No l onger eligible based on patient's age to complete this topic Meningococcal Vaccine Aged Out No william marlin eligible based on patient's age to complete this topic RSV Immunizations Under 20 Months Aged Out No longer eligible based on patient's age to complete this topic Insurance [facility] Care Teams Car Racer Relationship Specialty Start Date End Date Rock Israel MD [address] [address] PCP - General FAMILY PRACTICE 05/20/17
[2025-01-31 18:36] VITALS: BP 179/93; PULSE 83; RESP 20; TEMP 36.4; O2SAT 97
--- NOTE | 2025-01-31 19:25 | PC.NURSE ---
pt and family to desk, stating they are going to another facility due to wait time
--- OUTSIDE RECORDS SUMMARY | 2025-01-31 23:27 | XMS_ITS | Clinical Summary ---
Author Organization [facility] Address [facility] [place] [address] Care Team Providers Care Ui Designer Name Role Phone Rock Israel MD Primary Care Provider [phone] Allergies No known active allergies Medications atorvastatin [...] Comments Blood Pressure 137/75 05/20/2017 6:44 PM BRUSH MAKER Pulse 89 05/20/2017 6:44 PM BRUSH MAKER Temperature 37.1 C (98.8 F) 05/20/2017 6:44 PM BRUSH MAKER Respiratory Rate 20 05/20/2017 6:44 PM BRUSH MAKER Oxygen Saturation 97% 05/20/2017 6:44 PM BRUSH MAKER Inhaled Oxygen Concentration - - Weight 95.3 kg (210 lb) 05/20/2017 6:44 PM BRUSH MAKER Height 170.2 cm (5' 7) 05/20/2017 6:44 PM BRUSH MAKER Body Mass Index 32.89 05/20/2017 6:44 PM BRUSH MAKER Plan of Treatment Health Maintenance Due Date [...] patient's age to complete this topic Insurance [facility] Care Teams Ui Designer Relationship Specialty Start Date End Date Rock Israel MD [address] [address] PCP - General FAMILY PRACTICE 05/20/17
== END 2025-01-31 19:25 | disposition left against medical advice (07) ==
LOC: ANHED 23:25
PROVIDERS: PCP Family Medicine
DX: R10.9 Unspecified abdominal pain (principal)
CPT/HCPCS: 99199